=== PATIENT | male | born 1960 | race Caucasian/White ===

== ENCOUNTER 2017-04-21 17:35 | Emergency (ER) | payer OTHER ==
[~2017-04-21] VITALS: Ht 167.6 cm; Wt 73.9 kg
[2017-04-21] MEDS ORDERED: ASPI81CH PO (17:56)
[2017-04-21] MEDS ORDERED: DICL75ER PO (17:56)
[2017-04-21] MEDS ORDERED: DISU250 PO (17:57)
[2017-04-21] MEDS ORDERED: FLUPHENAZINE IM (17:58)
[2017-04-21] MEDS ORDERED: GABA300 PO (17:59)
[2017-04-21] MEDS ORDERED: LISI5 PO (17:59)
[2017-04-21] MEDS ORDERED: QUET100 PO (18:00)
[2017-04-21] MEDS ORDERED: Omeprazole20 M1 PO (18:00)
[2017-04-21] MEDS ORDERED: NAPR500 PO (18:00)
[2017-04-21] MEDS ORDERED: Requip0.5 MG PO (18:01)
[2017-04-21] MEDS ORDERED: Viagra100 MG PO (18:01)
[2017-04-21 18:09] LABS: BASOPHILS ABSOLUTE AUTO 0.05 K/mm3 (0.00-0.23); BASOPHILS PERCENT AUTO 1 % (0-2); EOSINOPHILS ABSOLUTE AUTO 0.31 K/mm3 (0.00-0.68); EOSINOPHILS PERCENT AUTO 5 % (0-6); Hematocrit 44.2 % (37.0-53.0); Hemoglobin 14.8 g/dL (13.5-17.5); IMMATURE GRAN ABSOLUTE AUTO 0.02 K/mm3 (0.00-0.10); IMMATURE GRAN PERCENT AUTO 0 % (0-1); LYMPHOCYTES ABSOLUTE AUTO 2.85 K/mm3 (0.84-5.20); LYMPHOCYTES PERCENT AUTO 43 % (21-46); MONOCYTES PERCENT AUTO 11 % (4-13); Mean Corpuscular HGB 30.2 pg (26.0-34.0); Mean Corpuscular HGB Conc 33.5 g/dL (31.5-36.5); Mean Corpuscular Volume 90 fL (80-100); NEUTROPHILS ABSOLUTE AUTO 2.63 K/mm3 (1.96-9.15); NEUTROPHILS PERCENT AUTO 40 % (41-73); Platelet Count 193 K/mm3 (150-400); RDW Coefficient Variation 13.7 % (11.7-14.2); White Blood Cell Count 6.56 K/mm3 (4.00-11.30)
[2017-04-21 18:21] LABS: Alanine Aminotransfer (ALT/SGP 92 U/L (12-78); Albumin, Blood 3.2 g/dL (3.4-5.0); Alk Phos 64 U/L (50-136); Anion Gap 9 mmol/L (6-16); Aspartate Aminotrans (AST/SGOT 50 U/L (12-37); Bilirubin, Total 0.7 mg/dL (0.1-1.0); Blood Urea Nitrogen 20 mg/dL (8-24); Bun/Creatinine Ratio 22.7 (12.0-20.0); CO2, Blood 23 mmol/L (21-32); Calcium, Blood 8.6 mg/dL (8.5-10.1); Chloride, Blood 107 mmol/L (98-108); Creatinine, Blood 0.88 mg/dL (0.60-1.20); Globulin, Blood 3.3 g/dL (2.2-4.0); Glomerular Filtration Rate >60 (60-); Glucose, Blood 98 mg/dL (70-99); Potassium, Blood 3.8 mmol/L (3.5-5.5); Sodium, Blood 139 mmol/L (136-145); Total Protein, Blood 6.5 g/dL (6.4-8.2); Troponin I <0.015 ng/mL (0.000-0.040)
[2017-11-18] MEDS ORDERED: Cipro500 MG PO (16:17)
[2017-11-18] MEDS ORDERED: BISM87SU PO (16:17)
[2017-11-18] MEDS ORDERED: PROBIOTIC1 EAC1 PO (16:17)
== END 2017-04-21 19:55 | disposition home or self-care (01) ==
LOC: ER 17:35
PROVIDERS: Physician Assistant
DX: I95.9 Hypotension, unspecified (principal); F17.210 Nicotine dependence, cigarettes, uncomplicated; I10 Essential (primary) hypertension; F31.9 Bipolar disorder, unspecified; K21.9 Gastro-esophageal reflux disease without esophagitis; Z79.82 Long term (current) use of aspirin; Z79.899 Other long term (current) drug therapy
CPT/HCPCS: 71046; 80053; 83880; 84484; 85025; 93005; 93010; 99283

== ENCOUNTER 2019-12-18 19:12 | Observation (INO) | payer OTHER ==
[~2019-12-18] VITALS: Ht 167.6 cm; Wt 104.3 kg
[~2019-12-18 19:12] MED LIST: ASPI81CH PO; B-1100 M2 PO; BENZ1 PO; BISM87SU PO; CYCL10 PO; Cipro500 MG PO; DICL75ER PO; DISU250 PO; FISH OIL 1,2001 EAC7 PO; FLUPHENAZINE IM; GABA300 PO; HYDCHL25 PO; HYDPAM50 PO; LISI5 PO; NAPR500 PO; OMEPRAZOLE MAGN20 MG PO; Omeprazole20 M1 PO; PROBIOTIC1 EAC1 PO; QUET100 PO; Requip0.5 MG PO; SULINDAC200 MG PO; TRAZ50 PO; Viagra100 MG PO; Vitamin B-121000 MCG PO
[2019-12-18 20:30] LABS: BASOPHILS ABSOLUTE AUTO 0.06 K/mm3 (0.00-0.23); BASOPHILS PERCENT AUTO 1 % (0-2); EOSINOPHILS ABSOLUTE AUTO 0.14 K/mm3 (0.00-0.68); EOSINOPHILS PERCENT AUTO 1 % (0-6); Hematocrit 49.6 % (37.0-53.0); Hemoglobin 16.3 g/dL (13.5-17.5); IMMATURE GRAN ABSOLUTE AUTO 0.06 K/mm3 (0.00-0.10); IMMATURE GRAN PERCENT AUTO 1 % (0-1); LYMPHOCYTES ABSOLUTE AUTO 4.27 K/mm3 (0.84-5.20); LYMPHOCYTES PERCENT AUTO 38 % (21-46); MONOCYTES ABSOLUTE AUTO 0.75 K/mm3 (0.16-1.47); MONOCYTES PERCENT AUTO 7 % (4-13); Mean Corpuscular HGB 30.7 pg (26.0-34.0); Mean Corpuscular HGB Conc 32.9 g/dL (31.5-36.5); Mean Corpuscular Volume 93 fL (80-100); Mean Platelet Volume 9.7 fL (9.1-12.4); NEUTROPHILS ABSOLUTE AUTO 6.11 K/mm3 (1.96-9.15); NEUTROPHILS PERCENT AUTO 54 % (41-73); Platelet Count 296 K/mm3 (150-400); RDW Coefficient Variation 14.5 % (11.7-14.2); RDW Standard Deviation 49.4 fL (35.1-46.3); Red Blood Cell Count 5.31 M/mm3 (4.30-5.90); White Blood Cell Count 11.39 K/mm3 (4.00-11.30)
[2019-12-18 20:48] LABS: Alanine Aminotransfer (ALT/SGP 22 U/L (12-78); Albumin, Blood 4.4 g/dL (3.4-5.0); Albumin/Globulin Ratio 1.2 (0.8-1.8); Alk Phos 61 U/L (50-136); Anion Gap 8 mmol/L (6-16); Aspartate Aminotrans (AST/SGOT 20 U/L (12-37); Bilirubin, Total 0.9 mg/dL (0.1-1.0); Blood Urea Nitrogen 8 mg/dL (8-24); Bun/Creatinine Ratio 9.3 (12.0-20.0); CO2, Blood 25 mmol/L (21-32); Calcium, Blood 9.5 mg/dL (8.5-10.1); Chloride, Blood 112 mmol/L (98-108); Creatinine, Blood 0.86 mg/dL (0.60-1.20); Ethanol (Alcohol), Blood, Med 290 mg/dL; Globulin, Blood 3.6 g/dL (2.2-4.0); Glomerular Filtration Rate >60 (60-); Glucose, Blood 111 mg/dL (70-99); Magnesium, Blood 2.4 mg/dL (1.6-2.4); Sodium, Blood 145 mmol/L (136-145)
== END 2019-12-19 10:21 | disposition home or self-care (01) ==
LOC: ER 19:12 → EOR 19:13
PROVIDERS: ADMIT Emergency Medicine
DX: F10.129 Alcohol abuse with intoxication, unspecified (principal); Y90.8 Blood alcohol level of 240 mg/100 ml or more; S00.31XA Abrasion of nose, initial encounter; X58.XXXA Exposure to other specified factors, initial encounter; I10 Essential (primary) hypertension; K21.9 Gastro-esophageal reflux disease without esophagitis; F17.210 Nicotine dependence, cigarettes, uncomplicated; Z79.899 Other long term (current) drug therapy
CPT/HCPCS: 36415; 80053; 83735; 85025; 96372; 99285; G0378; G0480; J1200; J1630; J2060

== ENCOUNTER 2020-01-12 14:12 | Emergency (ER) | payer OTHER ==
[~2020-01-12] VITALS: Ht 182.9 cm; Wt 98.4 kg
[2020-01-12] MEDS ORDERED: IBUP600 PO (21:07)
== END 2020-01-12 18:54 | disposition left against medical advice (07) ==
LOC: ER 14:12
DX: M25.532 Pain in left wrist (principal); M25.512 Pain in left shoulder; Z53.21 Procedure and treatment not carried out due to patient leaving prior to being seen by health care provider; M25.531 Pain in right wrist
CPT/HCPCS: 72100; 73030; 73110; 99283-25

== ENCOUNTER 2020-01-12 18:32 | Emergency (ER) | payer OTHER ==
[~2020-01-12] VITALS: Ht 182.9 cm; Wt 98.4 kg
[2020-01-12] MEDS ORDERED: IBUP600 PO (21:07)
== END 2020-01-12 21:25 | disposition home or self-care (01) ==
LOC: ER 18:32
DX: S63.004A Unspecified dislocation of right wrist and hand, initial encounter (principal); S43.402A Unspecified sprain of left shoulder joint, initial encounter; S39.012A Strain of muscle, fascia and tendon of lower back, initial encounter; S63.501A Unspecified sprain of right wrist, initial encounter; Z79.899 Other long term (current) drug therapy
CPT/HCPCS: 99282

== ENCOUNTER 2020-02-29 14:30 | Emergency (ER) | payer OTHER ==
[~2020-02-29] VITALS: Ht 167.6 cm; Wt 90.7 kg
[~2020-02-29 14:30] MED LIST changes: +IBUP600 PO
[2020-02-29 15:24] LABS: BASOPHILS ABSOLUTE AUTO 0.06 K/mm3 (0.00-0.23); BASOPHILS PERCENT AUTO 1 % (0-2); EOSINOPHILS ABSOLUTE AUTO 0.36 K/mm3 (0.00-0.68); EOSINOPHILS PERCENT AUTO 3 % (0-6); Hematocrit 49.6 % (37.0-53.0); Hemoglobin 16.9 g/dL (13.5-17.5); IMMATURE GRAN ABSOLUTE AUTO 0.03 K/mm3 (0.00-0.10); IMMATURE GRAN PERCENT AUTO 0 % (0-1); LYMPHOCYTES PERCENT AUTO 28 % (21-46); MONOCYTES ABSOLUTE AUTO 0.91 K/mm3 (0.16-1.47); MONOCYTES PERCENT AUTO 8 % (4-13); Mean Corpuscular HGB 31.4 pg (26.0-34.0); Mean Corpuscular HGB Conc 34.1 g/dL (31.5-36.5); Mean Corpuscular Volume 92 fL (80-100); Mean Platelet Volume 9.8 fL (9.1-12.4); NEUTROPHILS ABSOLUTE AUTO 7.21 K/mm3 (1.96-9.15); NEUTROPHILS PERCENT AUTO 61 % (41-73); Platelet Count 330 K/mm3 (150-400); RDW Coefficient Variation 13.4 % (11.7-14.2); RDW Standard Deviation 45.2 fL (35.1-46.3); Red Blood Cell Count 5.39 M/mm3 (4.30-5.90); White Blood Cell Count 11.87 K/mm3 (4.00-11.30)
[2020-02-29 15:43] LABS: Alanine Aminotransfer (ALT/SGP 27 U/L (12-78); Albumin, Blood 4.1 g/dL (3.4-5.0); Albumin/Globulin Ratio 1.1 (0.8-1.8); Alk Phos 79 U/L (50-136); Anion Gap 7 mmol/L (6-16); Aspartate Aminotrans (AST/SGOT 18 U/L (12-37); Bilirubin, Total 0.7 mg/dL (0.1-1.0); Blood Urea Nitrogen 11 mg/dL (8-24); Bun/Creatinine Ratio 15.5 (12.0-20.0); CO2, Blood 26 mmol/L (21-32); Calcium, Blood 10.1 mg/dL (8.5-10.1); Chloride, Blood 103 mmol/L (98-108); Creatinine, Blood 0.71 mg/dL (0.60-1.20); Globulin, Blood 3.8 g/dL (2.2-4.0); Glomerular Filtration Rate >60 (60-); Glucose, Blood 95 mg/dL (70-99); Potassium, Blood 3.9 mmol/L (3.5-5.5); Sodium, Blood 136 mmol/L (136-145); Total Protein, Blood 7.9 g/dL (6.4-8.2); Troponin I <0.015 ng/mL (0.000-0.040)
== END 2020-02-29 16:52 | disposition home or self-care (01) ==
LOC: ER 14:30
PROVIDERS: Physician Assistant
DX: K29.70 Gastritis, unspecified, without bleeding (principal); I10 Essential (primary) hypertension; F17.290 Nicotine dependence, other tobacco product, uncomplicated; Z79.899 Other long term (current) drug therapy
CPT/HCPCS: 36415; 71046; 80053; 83690; 84484; 85025; 93005; 93010; 99284-25

== ENCOUNTER 2020-05-23 18:26 | Emergency (ER) | payer OTHER ==
[~2020-05-23] VITALS: Ht 167.6 cm; Wt 90.7 kg
[~2020-05-23 18:26] MED LIST changes: -B-1100 M2 PO; -CYCL10 PO; -HYDPAM50 PO; -QUET100 PO; -SULINDAC200 MG PO; -TRAZ50 PO; -Vitamin B-121000 MCG PO
[2020-05-23] MEDS ORDERED: METPRE4DP PO (19:32)
== END 2020-05-23 19:43 | disposition home or self-care (01) ==
LOC: ER 18:26
DX: M54.17 Radiculopathy, lumbosacral region (principal); I10 Essential (primary) hypertension; K21.9 Gastro-esophageal reflux disease without esophagitis; F17.290 Nicotine dependence, other tobacco product, uncomplicated; Z79.899 Other long term (current) drug therapy
CPT/HCPCS: 96372; 99283-25; J1100

== ENCOUNTER 2020-05-28 16:15 | Emergency (ER) | payer OTHER ==
[~2020-05-28] VITALS: Ht 167.6 cm; Wt 93.0 kg
[~2020-05-28 16:15] MED LIST changes: +METPRE4DP PO
[2020-05-28] MEDS ORDERED: CEPH500 PO (18:25)
== END 2020-05-28 18:35 | disposition home or self-care (01) ==
LOC: ER 16:15
DX: L03.113 Cellulitis of right upper limb (principal); I10 Essential (primary) hypertension; K21.9 Gastro-esophageal reflux disease without esophagitis; F17.290 Nicotine dependence, other tobacco product, uncomplicated; Z79.899 Other long term (current) drug therapy
CPT/HCPCS: 99282; A9270

== ENCOUNTER 2020-05-30 10:24 | Inpatient (IN) | payer OTHER ==
[~2020-05-30] VITALS: Ht 167.6 cm; Wt 94.5 kg
[~2020-05-30 10:24] MED LIST changes: +CEPH500 PO
[2020-05-30] MEDS ORDERED: CEPHALEXIN500 M1 PO (11:05)
[2020-05-30 11:10] LABS: BASOPHILS ABSOLUTE AUTO 0.04 K/mm3 (0.00-0.23); BASOPHILS PERCENT AUTO 0 % (0-2); EOSINOPHILS ABSOLUTE AUTO 0.16 K/mm3 (0.00-0.68); EOSINOPHILS PERCENT AUTO 1 % (0-6); Hemoglobin 15.2 g/dL (13.5-17.5); IMMATURE GRAN ABSOLUTE AUTO 0.11 K/mm3 (0.00-0.10); IMMATURE GRAN PERCENT AUTO 1 % (0-1); LYMPHOCYTES PERCENT AUTO 3 % (21-46); MONOCYTES ABSOLUTE AUTO 0.54 K/mm3 (0.16-1.47); MONOCYTES PERCENT AUTO 3 % (4-13); Mean Corpuscular HGB 30.8 pg (26.0-34.0); Mean Corpuscular HGB Conc 33.8 g/dL (31.5-36.5); Mean Corpuscular Volume 91 fL (80-100); Mean Platelet Volume 10.4 fL (9.1-12.4); NEUTROPHILS ABSOLUTE AUTO 15.83 K/mm3 (1.96-9.15); NEUTROPHILS PERCENT AUTO 92 % (41-73); Platelet Count 229 K/mm3 (150-400); RDW Coefficient Variation 13.8 % (11.7-14.2); RDW Standard Deviation 46.6 fL (35.1-46.3); Red Blood Cell Count 4.94 M/mm3 (4.30-5.90); White Blood Cell Count 17.18 K/mm3 (4.00-11.30)
[2020-05-30 11:21] LABS: Alanine Aminotransfer (ALT/SGP 28 U/L (12-78); Albumin, Blood 2.8 g/dL (3.4-5.0); Albumin/Globulin Ratio 0.7 (0.8-1.8); Alk Phos 66 U/L (50-136); Anion Gap 1 mmol/L (6-16); Aspartate Aminotrans (AST/SGOT 14 U/L (12-37); Bilirubin, Total 0.8 mg/dL (0.1-1.0); Blood Urea Nitrogen 19 mg/dL (8-24); CO2, Blood 30 mmol/L (21-32); Calcium, Blood 8.9 mg/dL (8.5-10.1); Chloride, Blood 108 mmol/L (98-108); Creatinine, Blood 0.71 mg/dL (0.60-1.20); Glomerular Filtration Rate >60 (60-); Glucose, Blood 150 mg/dL (70-99); Potassium, Blood 4.1 mmol/L (3.5-5.5); Sodium, Blood 139 mmol/L (136-145); Total Protein, Blood 6.8 g/dL (6.4-8.2)
[2020-05-30] MEDS ORDERED: ACET325 PO (13:56)
[2020-05-30] MEDS ORDERED: DEPAKOTE ER500 M2 PO (13:58)
[2020-05-30] MEDS ORDERED: ZADITOR5 M1 BOTHEYES (13:59)
[2020-05-30] MEDS ORDERED: MAGNESIUM OXID500 MG PO (13:59)
[2020-05-30] MEDS ORDERED: HYDROCHLOROTH12.5 MG PO (13:59)
[2020-05-30] MEDS ORDERED: MELA3 PO (14:00)
[2020-05-30] MEDS ORDERED: NIAC500ER PO (14:01)
[2020-05-30] MEDS ORDERED: TAMS.4ER PO (14:01)
[2020-05-30] MEDS ORDERED: QUET100 PO (14:02)
[2020-05-30] MEDS ORDERED: Hydroxyzine HCl50 MG PO (14:03)
[2020-05-30] MEDS ORDERED: CYCL10 PO (14:03)
[2020-05-30] MEDS ORDERED: SULINDAC200 MG PO (14:04)
[2020-05-30] MEDS ORDERED: B-1100 M2 PO (14:04)
[2020-05-30] MEDS ORDERED: TRAZ50 PO (14:04)
[2020-05-30] MEDS ORDERED: FISH OIL 1,2001 EAC7 PO (14:05)
[2020-05-30] MEDS ORDERED: Vitamin B-121000 MCG PO (14:05)
[2020-05-30] MEDS ORDERED: PRAZ2 PO (14:06)
[2020-05-30] MEDS ORDERED: OMEP20ER PO (14:06)
[2020-05-30] MEDS ORDERED: LIDO700A20 TD (14:07)
[2020-05-30] MEDS ORDERED: NARCAN4 M1 (14:07)
[2020-05-30] MEDS ORDERED: THERA GESIC TOP (14:09)
[2020-05-30 18:30] LABS: U Amphetamine Screen Not Detected; U Barbituate Screen Not Detected; U Benzodiazapine Screen DETECTED; U Buprenorphine Screen Not Detected; U Cannabinoids Screen Not Detected; U Cocaine Screen Not Detected; U Methadone Screen Not Detected; U Methamphetamine Screen Not Detected; U Opiates Screen Not Detected; U Oxycodone Screen Not Detected; U Phencyclidine Screen Not Detected; U Propoxyphene Screen Not Detected
--- NOTE | 2020-05-30 18:36 | NUR ---
Shift Summary Assumed care at 1503. Received report from [facility] ED-RN. Patient arrived to unit via gurney. A/Ox4, independent in room. Patient reports using marijuana, methamphetamine, and alcohol occassionally. States last alcohol consumption was , 05/27/20 and reports only drinking "a couple of beers". States he is homeless right now living in a tent with friends. CIWA: 2. UA and MRSA swab (Nares) collected and sent in. DNR band verified with Chucky, applied to L wrist. Hx of MRSA, admitted with cellulitis to R arm. Patient in contact isolation. C/O 10/10 R arm pain and new N/T to affected arm since 3 days ago. On RA, unlabored breathing. Calls appropriately for needs. Appetite is good. WCTM and report to oncoming RN.
[2020-05-31 04:51] LABS: BASOPHILS ABSOLUTE AUTO 0.02 K/mm3 (0.00-0.23); BASOPHILS PERCENT AUTO 0 % (0-2); EOSINOPHILS ABSOLUTE AUTO 0.18 K/mm3 (0.00-0.68); EOSINOPHILS PERCENT AUTO 1 % (0-6); Hematocrit 39.6 % (37.0-53.0); Hemoglobin 13.3 g/dL (13.5-17.5); IMMATURE GRAN ABSOLUTE AUTO 0.16 K/mm3 (0.00-0.10); IMMATURE GRAN PERCENT AUTO 1 % (0-1); LYMPHOCYTES ABSOLUTE AUTO 1.42 K/mm3 (0.84-5.20); LYMPHOCYTES PERCENT AUTO 10 % (21-46); MONOCYTES PERCENT AUTO 7 % (4-13); Mean Corpuscular HGB Conc 33.6 g/dL (31.5-36.5); Mean Corpuscular Volume 92 fL (80-100); Mean Platelet Volume 10.1 fL (9.1-12.4); NEUTROPHILS ABSOLUTE AUTO 12.02 K/mm3 (1.96-9.15); NEUTROPHILS PERCENT AUTO 81 % (41-73); Platelet Count 224 K/mm3 (150-400); RDW Standard Deviation 47.6 fL (35.1-46.3); Red Blood Cell Count 4.29 M/mm3 (4.30-5.90)
--- NOTE | 2020-05-31 08:09 | NUR ---
SHIFT SUMMARY: PATIENT IA A&IX4, VSS, CIWA SCORES ARE 2 (HEAD ACHE), 0, AND 0. REPORTED PAIN IN R HAND AND ARM AND WAS GIVEN TYLENOL AND FLEXERIL WITH GOOD EFFECT. R HAND/ARM IS RED AND WARM, BORDERS ARE MARKED.
--- NOTE | 2020-05-31 16:51 | NUR ---
SHIFT SUMMARY ORTHO CONSULTED TODAY & IN TO SEE PT TODAY. PT TO BE NPO AT MIDNIGHT FOR POSSIBLE SURGERY. TRAMADOL ADDED TO PAIN REGIMEN. LITTLE PAIN RELIEF REPORTED BY PT. ICE PACKS PROVIDED TO AIDE IN SWELLING. PT DENIES OTHER PROBLEMS BESIDES HIS ARM PAIN. REDNESS HAS NOT WORSENED THIS SHIFT. NO OTHER ACUTE CHANGES IN ASSESSMENT AT THIS TIME. VS REVIEWED. PT IND IN ROOM WHEN NOT CONNECTED TO IV PUMP. CALL LIGHT IN REACH, WATCHING MOVIES T/O THE DAY. DENIES OTHER NEEDS AT THIS TIME.
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
--- NOTE | 2020-06-01 06:13 | NUR ---
DR [facility] SAYS NO SURGERY CONTINUE TO ELEVATE RT UE. rESUME DIET & CONTINUE WITH ABX THERAPY.
--- NOTE | 2020-06-01 18:13 | NUR ---
SHIFT SUMMARY PT UP IN ROOM INDEPENDENTLY THROUGH THE DAY. SHOWER TAKEN. ENCOURAGED TO KEEP R ARM AND HAND ELEVATED ABOVE HEART SEVERAL TIMES TODAY WITH PILLOWS PROVIDED. DID SAY ONCE HE WAS PUTTING IT OVER HIS HEAD IN BED. THIS NURSE HAS NOT SEEN PT KEEP HAND ELEVATED AT ANY TIME WHEN CHECKING ON PT. RECEIVED NEW ORDER TO TORADOL DUE TO PT REPORTING TRAMADOL DIDN'T WORK. ALSO REPORTED TORADOL DIDN'T WORK EITHER. R HAND VERY WARM TO TOUCH. SWOLLEN AND RED. PULSE FAINT. REDNESS GOES UP TO LOWER FOREARM BUT OTHER MARKED AREAS ON ARM NO LONGER RED. SMALL SCAB ON BACK OF HAND DRAINING A SMALL AMOUNT OF CLEAR DISCHARGE.
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
--- NOTE | 2020-06-02 18:29 | NUR ---
SHIFT SUMMARY INDEPENDENT IN ROOM. PLANS FOR DISCHARGE TOMORROW TO DAYS INN AT 1500 ACCORDING TO PT. R HAND LESS RED AND LESS SWOLLEN THIS EVENING COMPARED TO THIS MORNING. HAVE CONTINUED TO ENCOURAGE PT TO KEEP R HAND ELEVATED AND HAVE NOTICED HE HAS ELEVATED IT A BIT MORE TODAY. REPORTS PAIN IS IMPROVING WELL.
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
[2020-06-03] MEDS ORDERED: SULTRIDS PO (13:05)
--- NOTE | 2020-06-03 14:00 | NUR ---
DISCHARGE SUMMARY- DISCHARGE INSTRUCTIONS REVIEWED WITH PT. RX FAXED TO [facility]. [facility]. PT DC'D VIA [facility] AT 1400 ESCORTED OUT VIA WHEELCHAIR.
== END 2020-06-03 14:03 | disposition home or self-care (01) | DRG 603 ==
LOC: ER 10:24 → MEDS 13:49 → ER 14:08 → ICUW 14:08 → MEDS 15:16
PROVIDERS: Emergency Medicine; ADMIT Hospitalist
DX: L03.113 Cellulitis of right upper limb (principal); F31.9 Bipolar disorder, unspecified; Z66 Do not resuscitate; I10 Essential (primary) hypertension; F19.10 Other psychoactive substance abuse, uncomplicated; N40.0 Benign prostatic hyperplasia without lower urinary tract symptoms; K21.9 Gastro-esophageal reflux disease without esophagitis; Z59.0 Homelessness; Z86.14 Personal history of Methicillin resistant Staphylococcus aureus infection
CPT/HCPCS: 36415; 73201; 80053; 82550; 83605; 85025; 87040; 96365-59; 96366; 96367; 99284-25; A9270; J0690; J0696; J1650; J1885; J2405; J2543; J3370; J7030; J7050; Q9967

== ENCOUNTER 2020-10-12 04:40 | Emergency (ER) | payer OTHER ==
[~2020-10-12] VITALS: Ht 167.6 cm; Wt 88.9 kg
[~2020-10-12 04:40] MED LIST changes: +ACET325 PO; +B-1100 M2 PO; +CEPHALEXIN500 M1 PO; +CYCL10 PO; +DEPAKOTE ER500 M2 PO; +HYDROCHLOROTH12.5 MG PO; +Hydroxyzine HCl50 MG PO; +LIDO700A20 TD; +MAGNESIUM OXID500 MG PO; +MELA3 PO; +NARCAN4 M1; +NIAC500ER PO; +OMEP20ER PO; +PRAZ2 PO; +QUET100 PO; +SULINDAC200 MG PO; +SULTRIDS PO; +TAMS.4ER PO; +THERA GESIC TOP; +TRAZ50 PO; +Vitamin B-121000 MCG PO; +ZADITOR5 M1 BOTHEYES
[2020-10-12] MEDS ORDERED: LISI5 PO (04:52)
== END 2020-10-12 07:08 | disposition left against medical advice (07) ==
LOC: ER 04:40
DX: R10.13 Epigastric pain (principal); I10 Essential (primary) hypertension; F17.210 Nicotine dependence, cigarettes, uncomplicated; K21.9 Gastro-esophageal reflux disease without esophagitis; Z79.899 Other long term (current) drug therapy
CPT/HCPCS: 93005; 93010; 99283-25; A9270

== ENCOUNTER 2020-10-17 08:35 | Inpatient (IN) | payer OTHER ==
[~2020-10-17] VITALS: Ht 167.6 cm; Wt 88.0 kg
[2020-10-17 09:49] LABS: BASOPHILS ABSOLUTE AUTO 0.04 K/mm3 (0.00-0.23); BASOPHILS PERCENT AUTO 0 % (0-2); EOSINOPHILS ABSOLUTE AUTO 0.02 K/mm3 (0.00-0.68); EOSINOPHILS PERCENT AUTO 0 % (0-6); Hematocrit 48.3 % (37.0-53.0); Hemoglobin 16.1 g/dL (13.5-17.5); IMMATURE GRAN ABSOLUTE AUTO 0.14 K/mm3 (0.00-0.10); IMMATURE GRAN PERCENT AUTO 1 % (0-1); LYMPHOCYTES ABSOLUTE AUTO 1.69 K/mm3 (0.84-5.20); LYMPHOCYTES PERCENT AUTO 8 % (21-46); MONOCYTES ABSOLUTE AUTO 1.97 K/mm3 (0.16-1.47); MONOCYTES PERCENT AUTO 10 % (4-13); Mean Corpuscular HGB 31.3 pg (26.0-34.0); Mean Corpuscular HGB Conc 33.3 g/dL (31.5-36.5); Mean Corpuscular Volume 94 fL (80-100); NEUTROPHILS ABSOLUTE AUTO 16.18 K/mm3 (1.96-9.15); NEUTROPHILS PERCENT AUTO 81 % (41-73); RDW Standard Deviation 44.7 fL (35.1-46.3); Red Blood Cell Count 5.15 M/mm3 (4.30-5.90); White Blood Cell Count 20.04 K/mm3 (4.00-11.30)
[2020-10-17 09:58] LABS: Mean Platelet Volume 10.9 fL (9.1-12.4)
[2020-10-17 10:06] LABS: Alanine Aminotransfer (ALT/SGP 21 U/L (12-78); Albumin, Blood 3.7 g/dL (3.4-5.0); Albumin/Globulin Ratio 1.1 (0.8-1.8); Alk Phos 62 U/L (50-136); Anion Gap 6 mmol/L (6-16); Aspartate Aminotrans (AST/SGOT 22 U/L (12-37); Bilirubin, Total 1.6 mg/dL (0.1-1.0); Blood Urea Nitrogen 11 mg/dL (8-24); Bun/Creatinine Ratio 12.6 (12.0-20.0); CO2, Blood 23 mmol/L (21-32); Calcium, Blood 8.6 mg/dL (8.5-10.1); Chloride, Blood 107 mmol/L (98-108); Creatinine, Blood 0.87 mg/dL (0.60-1.20); Globulin, Blood 3.5 g/dL (2.2-4.0); Glomerular Filtration Rate >60 (60-); Glucose, Blood 105 mg/dL (70-99); Potassium, Blood 4.2 mmol/L (3.5-5.5); Sodium, Blood 136 mmol/L (136-145); Total Protein, Blood 7.2 g/dL (6.4-8.2)
[2020-10-17 10:44] LABS: Platelet Count 209 K/mm3 (150-400)
--- NOTE | 2020-10-17 14:30 | NUR ---
PT ARRIVED TO UNIT AT 1400. ABLE TO TRANSFER SELF TO BED, NO WEAKNESS WITH TRANSFER. PT REPORTS PAIN AT 8/10 AND REQUESTS TYLENOL TO MANAGE PAIN, REPORTS BEING 160 DAYS SOBER AND DOESNT WANT TO TAKE ANYTHING THAT CAN IMPACT THAT. TOLERATING PO WELL CURRENTLY EATING SANDWICH AND DRINKING WATER. LARGE REDDENED AREA TO RIGHT AXILLA, PT REPORTS FEELING A "KNOT" IN THE AREA YESTERDAY THAT HE WAS MASSAGING, HE FELT IT POP AND NOW HAS THE LARGE REDDENED AREA. OUTLINE OF REDDENED AREA PRESENT FROM ER. RE OUTLINED ON ARRIVAL WITH THINNER MARKER, REDDNESS APPEARS DECREASED FROM INITIAL MARKING. FIRM TO TOUCH ON SUPERIOR SECTION OF REDNESS. PT REPORTS IT FEELS HOT TO HIM.
[2020-10-17 15:37] LABS: SARS-Cov-2 (COVID-19) PCR, MMC NEGATIVE (NEGATIVE)
--- NOTE | 2020-10-17 17:33 | NUR ---
NO ACUTE CHANGES SINCE ARRIVAL TO UNIT. PT RESTING IN BED WATCHING TV. TOLERATING PO WELL. PAIN MANAGED WITH TYLENOL AND ICE PACK PER PT REQUEST. COOL RAG PROVIDED.
--- NOTE | 2020-10-17 18:38 | NUR ---
IV ABX INFUSING PER EMAR. NICOTINE PATCH STARTED.
[2020-10-18 08:31] LABS: BASOPHILS ABSOLUTE AUTO 0.05 K/mm3 (0.00-0.23); BASOPHILS PERCENT AUTO 0 % (0-2); EOSINOPHILS ABSOLUTE AUTO 0.12 K/mm3 (0.00-0.68); EOSINOPHILS PERCENT AUTO 1 % (0-6); Hematocrit 44.1 % (37.0-53.0); Hemoglobin 14.9 g/dL (13.5-17.5); IMMATURE GRAN ABSOLUTE AUTO 0.13 K/mm3 (0.00-0.10); IMMATURE GRAN PERCENT AUTO 1 % (0-1); LYMPHOCYTES ABSOLUTE AUTO 1.69 K/mm3 (0.84-5.20); LYMPHOCYTES PERCENT AUTO 7 % (21-46); MONOCYTES ABSOLUTE AUTO 2.09 K/mm3 (0.16-1.47); MONOCYTES PERCENT AUTO 9 % (4-13); Mean Corpuscular HGB 31.4 pg (26.0-34.0); Mean Corpuscular HGB Conc 33.8 g/dL (31.5-36.5); Mean Corpuscular Volume 93 fL (80-100); Mean Platelet Volume 10.4 fL (9.1-12.4); NEUTROPHILS PERCENT AUTO 82 % (41-73); Platelet Count 188 K/mm3 (150-400); RDW Standard Deviation 44.7 fL (35.1-46.3); Red Blood Cell Count 4.75 M/mm3 (4.30-5.90); White Blood Cell Count 22.88 K/mm3 (4.00-11.30)
[2020-10-18 08:47] LABS: Anion Gap 5 mmol/L (6-16); Blood Urea Nitrogen 14 mg/dL (8-24); Bun/Creatinine Ratio 18.1 (12.0-20.0); CO2, Blood 24 mmol/L (21-32); Calcium, Blood 8.7 mg/dL (8.5-10.1); Chloride, Blood 107 mmol/L (98-108); Creatinine, Blood 0.77 mg/dL (0.60-1.20); Glomerular Filtration Rate >60 (60-); Glucose, Blood 124 mg/dL (70-99); Potassium, Blood 4.2 mmol/L (3.5-5.5); Sodium, Blood 136 mmol/L (136-145)
--- NOTE | 2020-10-18 11:57 | NUR ---
SALINE LOCKED PT TO TAKE SHOWER.
--- NOTE | 2020-10-18 12:40 | NUR ---
PT OUT OF ROOM.
--- NOTE | 2020-10-18 15:59 | NUR ---
REMOVED NICOTINE PATCH PT WANTED TO GO OUTSIDE TO SMOKE. REMOVED NICOTINE PATCH.
--- NOTE | 2020-10-18 17:24 | NUR ---
SUMMARY PT REC'D ABX PER ORDERS T/O DAY. REDNESS HAS PROGRESSED BELOW PREVIOUS OUTLINE, PLACED NEW OUTLINE W/DATE. MEDICATED PER ORDERS FOR AXILLARY PAIN AND SZYMANSKI T/O SHIFT. PT REMOVED NICOTINE PATCH(RN DISPOSED OF PATCH) AND WENT OUTSIDE TO SMOKE. SHOWERED THIS SHIFT. FEBRILE THIS AFTERNOON, PT REC'D TYLENOL AND TORADOL PER ORDERS FOR PAIN. PT INDEPENDENT IN ROOM. CALL LIGHT IN REACH.
--- NOTE | 2020-10-18 19:00 | NUR ---
GABAPENTIN PT REFUSED GABAPENTING STATING IT IS "JUNK" AND DIDN'T WANT IT. PT STATED FEELING ANXIOUS, REQUESTING ATARAX FROM PHARMACY. REPORT GIVEN TO ONCOMING SHIFT.
[2020-10-19 04:49] LABS: BASOPHILS ABSOLUTE AUTO 0.04 K/mm3 (0.00-0.23); BASOPHILS PERCENT AUTO 0 % (0-2); EOSINOPHILS ABSOLUTE AUTO 0.29 K/mm3 (0.00-0.68); EOSINOPHILS PERCENT AUTO 2 % (0-6); Hematocrit 39.2 % (37.0-53.0); Hemoglobin 13.3 g/dL (13.5-17.5); IMMATURE GRAN ABSOLUTE AUTO 0.05 K/mm3 (0.00-0.10); IMMATURE GRAN PERCENT AUTO 0 % (0-1); LYMPHOCYTES ABSOLUTE AUTO 1.46 K/mm3 (0.84-5.20); LYMPHOCYTES PERCENT AUTO 10 % (21-46); MONOCYTES ABSOLUTE AUTO 1.44 K/mm3 (0.16-1.47); MONOCYTES PERCENT AUTO 10 % (4-13); Mean Corpuscular HGB 31.3 pg (26.0-34.0); Mean Corpuscular HGB Conc 33.9 g/dL (31.5-36.5); Mean Corpuscular Volume 92 fL (80-100); Mean Platelet Volume 10.7 fL (9.1-12.4); NEUTROPHILS ABSOLUTE AUTO 11.68 K/mm3 (1.96-9.15); NEUTROPHILS PERCENT AUTO 78 % (41-73); Platelet Count 181 K/mm3 (150-400); RDW Coefficient Variation 13.2 % (11.7-14.2); RDW Standard Deviation 44.5 fL (35.1-46.3); Red Blood Cell Count 4.25 M/mm3 (4.30-5.90); White Blood Cell Count 14.96 K/mm3 (4.00-11.30)
[2020-10-19 05:06] LABS: Anion Gap 5 mmol/L (6-16); Blood Urea Nitrogen 11 mg/dL (8-24); Bun/Creatinine Ratio 13.2 (12.0-20.0); CO2, Blood 26 mmol/L (21-32); Calcium, Blood 8.1 mg/dL (8.5-10.1); Chloride, Blood 108 mmol/L (98-108); Creatinine, Blood 0.83 mg/dL (0.60-1.20); Glomerular Filtration Rate >60 (60-); Glucose, Blood 145 mg/dL (70-99); Potassium, Blood 3.7 mmol/L (3.5-5.5); Sodium, Blood 139 mmol/L (136-145)
--- NOTE | 2020-10-19 08:20 | NUR ---
SUMMARY PT SLEPT OFF AND ON LAST NIGHT.I SPOKE WITH DR AMADO REGARDING PTS FEVERS AND ADVISED PT STATED RECENTLY COMPLETED ISOLATION PERIOD FOR DIRECT EXPOSURE TO COVID.PT DENIES COUGH.ALSO DISCUSSED PT ELEVATION IN WBC ALTHOUGH ANTIBIOTICS WERE CHANGED YEATERDAY. NO NEW ORDERS RECEIVED.
[2020-10-19 08:58] LABS: SARS-Cov-2 (COVID-19) PCR, MMC NEGATIVE (NEGATIVE)
--- NOTE | 2020-10-19 12:36 | NUR ---
pt out of room
--- NOTE | 2020-10-19 13:12 | NUR ---
pt back to room
--- NOTE | 2020-10-19 17:19 | NUR ---
PT OUT OF ROOM.
--- NOTE | 2020-10-19 17:50 | NUR ---
pt out of room
--- NOTE | 2020-10-19 18:08 | NUR ---
SUMMARY PT BACK TO ROOM. MEDICATED PER ORDERS W/TYLENOL FOR 8/10 R AXILLARY PAIN. IV FLUIDS INFUSING PER ORDERS. PT EATING DINNER. NO ACUTE CHANGES T/O SHIFT. PT IRRITABLE AT TIMES. PT INDEPENDENT. CALL LIGHT IN REACH.
[2020-10-20 05:52] LABS: BASOPHILS ABSOLUTE AUTO 0.03 K/mm3 (0.00-0.23); BASOPHILS PERCENT AUTO 0 % (0-2); EOSINOPHILS ABSOLUTE AUTO 0.28 K/mm3 (0.00-0.68); EOSINOPHILS PERCENT AUTO 3 % (0-6); Hematocrit 42.1 % (37.0-53.0); IMMATURE GRAN ABSOLUTE AUTO 0.04 K/mm3 (0.00-0.10); IMMATURE GRAN PERCENT AUTO 0 % (0-1); LYMPHOCYTES ABSOLUTE AUTO 2.22 K/mm3 (0.84-5.20); LYMPHOCYTES PERCENT AUTO 21 % (21-46); MONOCYTES PERCENT AUTO 9 % (4-13); Mean Corpuscular HGB Conc 33.3 g/dL (31.5-36.5); Mean Corpuscular Volume 93 fL (80-100); Mean Platelet Volume 10.8 fL (9.1-12.4); NEUTROPHILS ABSOLUTE AUTO 7.15 K/mm3 (1.96-9.15); NEUTROPHILS PERCENT AUTO 67 % (41-73); Platelet Count 195 K/mm3 (150-400); RDW Standard Deviation 44.9 fL (35.1-46.3); Red Blood Cell Count 4.51 M/mm3 (4.30-5.90); White Blood Cell Count 10.72 K/mm3 (4.00-11.30)
[2020-10-20 06:12] LABS: Anion Gap 4 mmol/L (6-16); Blood Urea Nitrogen 8 mg/dL (8-24); Bun/Creatinine Ratio 10.1 (12.0-20.0); CO2, Blood 28 mmol/L (21-32); Calcium, Blood 8.3 mg/dL (8.5-10.1); Chloride, Blood 108 mmol/L (98-108); Creatinine, Blood 0.79 mg/dL (0.60-1.20); Glomerular Filtration Rate >60 (60-); Glucose, Blood 90 mg/dL (70-99); Potassium, Blood 3.8 mmol/L (3.5-5.5); Sodium, Blood 140 mmol/L (136-145)
--- NOTE | 2020-10-20 06:17 | NUR ---
SHIFT SUMMARY PT AOX4. INDEPENDENT IN ROOM. PT WOULD STEP OUTSIDE THE ROOM X3 T/O SHIFT TO HAVE A SMOKE BREAK. VSS. R AXILLA STILL RED, REDNESS HAS NOT IMPROVED BUT NOT WORSEN. PT STS THAT THE LUMP ON R AXILLA IS WORSE COMPARED YESTERDAY. PT REPORTS PAIN. PAIN MANAGED WITH TORADOL, TYLENOL AND GABAPENTIN. PT HAS BEEN PLEASANT, APPROPRIATE AND COOPERATIVE WITH CARE. IV STILL INFUSING. CALL LIGHT WITHIN REACH. PT IS VOIDING WELL WITHOUT ANY ISSUES. TOLERATING PO INTAKE. DENIES N/V. WILL PROVIDE REPORT TO ONCOMING NURSE.
--- NOTE | 2020-10-20 07:45 | NUR ---
meds given as sched digital media intern by to see pt req cold compress to be placed to r axillia inc red noted but less red r/t to marked margins pt reported it feels like it is more lumpy the digital media intern feels like it is less hard pain 10/12
--- NOTE | 2020-10-20 09:45 | NUR ---
dr durbin by to see pt
--- NOTE | 2020-10-20 11:59 | NUR ---
PT OUT TO SMOKE
[2020-10-20] MEDS ORDERED: Cleocin HCl150 MG PO (17:06)
== END 2020-10-20 18:27 | disposition home or self-care (01) | DRG 872 ==
LOC: ER 08:35 → ERHOLD 08:36 → SURS 08:36
PROVIDERS: Family Medicine; Physician Assistant; Student in an Organized Health Care Education/Training Program; ADMIT Hospitalist
DX: A41.9 Sepsis, unspecified organism (principal); L03.111 Cellulitis of right axilla; L03.313 Cellulitis of chest wall; K21.9 Gastro-esophageal reflux disease without esophagitis; F31.9 Bipolar disorder, unspecified; G89.29 Other chronic pain; N40.0 Benign prostatic hyperplasia without lower urinary tract symptoms; Z66 Do not resuscitate; Z20.822 Contact with and (suspected) exposure to COVID-19; F15.21 Other stimulant dependence, in remission; F12.90 Cannabis use, unspecified, uncomplicated; M54.9 Dorsalgia, unspecified; F10.21 Alcohol dependence, in remission; F17.210 Nicotine dependence, cigarettes, uncomplicated; G47.00 Insomnia, unspecified; I10 Essential (primary) hypertension; Z98.890 Other specified postprocedural states; Z86.14 Personal history of Methicillin resistant Staphylococcus aureus infection; Z86.19 Personal history of other infectious and parasitic diseases; Z79.899 Other long term (current) drug therapy
CPT/HCPCS: 36415; 71260; 74160; 76604; 76882; 80048; 80053; 83605; 85025; 87040; 96365; 96366; 96367; 96372; 96375; 96376; 99285-25; A9270; G0378; J0690; J0696; J1650; J1885; J2270; J2405; J3370; J7030; J7050; Q9967; U0004

== ENCOUNTER 2021-07-30 09:08 | Emergency (ER) | payer OTHER ==
[~2021-07-30] VITALS: Ht 167.6 cm; Wt 86.6 kg
[~2021-07-30 09:08] MED LIST changes: +Cleocin HCl150 MG PO
== END 2021-07-30 09:50 | disposition home or self-care (01) ==
LOC: ER 09:08
DX: M54.50 Low back pain, unspecified (principal); G89.29 Other chronic pain; I10 Essential (primary) hypertension; K21.9 Gastro-esophageal reflux disease without esophagitis; N40.0 Benign prostatic hyperplasia without lower urinary tract symptoms; F17.210 Nicotine dependence, cigarettes, uncomplicated; Z79.899 Other long term (current) drug therapy
CPT/HCPCS: 99282

== ENCOUNTER → 2021-11-21 | Outpatient (CLI) | payer OTHER ==
[2021-11-21 10:09] LABS: Source, Urine Voided
[2021-11-21 10:58] LABS: Bilirubin, Urine Neg (Neg); Blood, Urine Neg (Neg); Glucose Qualitative, Urine Neg (Neg); Ketones, Urine Neg (Neg); Leukocyte Esterase, Urine Neg (Neg); Nitrite, Urine Neg (Neg); Protein, Urine Neg (Neg); Urobilinogen, Urine NORM (Normal)
[2021-11-21 11:04] LABS: Appearance, Urine Clear (Clear); Color, Urine Yellow (P-Yellow)
== END ==
LOC: LAB SHORT 10:00
PROVIDERS: Radiology Therapeutic Radiology
DX: C61 Malignant neoplasm of prostate (principal)
CPT/HCPCS: 81003

== ENCOUNTER 2022-03-08 09:08 | Emergency (ER) | payer OTHER ==
[~2022-03-08] VITALS: Ht 167.6 cm; Wt 90.7 kg
[2022-03-08 11:19] LABS: Influenza A, PCR NEGATIVE (NEGATIVE); Influenza B, PCR NEGATIVE (NEGATIVE); Resp Syncytial Virus, PCR NEGATIVE (NEGATIVE); SARS-Cov-2 (COVID-19) PCR, MMC NEGATIVE (NEGATIVE)
== END 2022-03-08 12:22 | disposition home or self-care (01) ==
LOC: ER 09:08
PROVIDERS: Physician Assistant
DX: R51.9 Headache, unspecified (principal); Z20.822 Contact with and (suspected) exposure to COVID-19; K21.9 Gastro-esophageal reflux disease without esophagitis; I10 Essential (primary) hypertension; Z79.899 Other long term (current) drug therapy; F17.210 Nicotine dependence, cigarettes, uncomplicated
CPT/HCPCS: 0241U; 70450

== ENCOUNTER 2022-07-05 05:27 | Emergency (ER) | payer OTHER ==
[~2022-07-05] VITALS: Ht 175.3 cm; Wt 113.4 kg
[2022-07-05 05:35] VITALS: BP 158/107
[2022-07-05] MEDS ORDERED: OMEP20ER PO (07:27)
== END 2022-07-05 07:59 | disposition home or self-care (01) ==
LOC: ER 05:27
DX: R07.2 Precordial pain (principal); R11.2 Nausea with vomiting, unspecified; R10.13 Epigastric pain; K21.9 Gastro-esophageal reflux disease without esophagitis; Z79.899 Other long term (current) drug therapy; I10 Essential (primary) hypertension; F17.210 Nicotine dependence, cigarettes, uncomplicated
CPT/HCPCS: 71046; 93005; 93010; A9270

== ENCOUNTER 2023-01-06 05:31 | Emergency (ER) | payer OTHER ==
[~2023-01-06] VITALS: Ht 167.6 cm; Wt 89.4 kg
[2023-01-06 05:47] VITALS: BP 122/104
== END 2023-01-06 08:00 | disposition home or self-care (01) ==
LOC: ER 05:31
DX: S80.01XA Contusion of right knee, initial encounter (principal); F29 Unspecified psychosis not due to a substance or known physiological condition; I10 Essential (primary) hypertension; K21.9 Gastro-esophageal reflux disease without esophagitis; N40.0 Benign prostatic hyperplasia without lower urinary tract symptoms; F17.210 Nicotine dependence, cigarettes, uncomplicated; W19.XXXA Unspecified fall, initial encounter; Z79.899 Other long term (current) drug therapy
CPT/HCPCS: 99283

== ENCOUNTER 2024-05-03 16:33 | Emergency (ER) | payer OTHER ==
[~2024-05-03] VITALS: Ht 172.7 cm; Wt 90.7 kg
[2024-05-03 16:35] VITALS: BP 101/75
[2024-05-03] MEDS ORDERED: Ondansetron HCl 2 MG / ML 2ML Vial IV PRN (16:50)
[2024-05-03] MEDS ORDERED: Morphine Sulfate 4 MG/1 ML Injection IV ONE (16:50)
[2024-05-03 17:23] LABS: BASOPHILS ABSOLUTE AUTO 0.04 K/mm3 (0.00-0.23); BASOPHILS PERCENT AUTO 0 % (0-2); EOSINOPHILS ABSOLUTE AUTO 0.17 K/mm3 (0.00-0.68); EOSINOPHILS PERCENT AUTO 1 % (0-6); Hematocrit 44.4 % (37.0-53.0); Hemoglobin 15.2 g/dL (13.5-17.5); IMMATURE GRAN ABSOLUTE AUTO 0.05 K/mm3 (0.00-0.10); IMMATURE GRAN PERCENT AUTO 0 % (0-1); LYMPHOCYTES ABSOLUTE AUTO 1.13 K/mm3 (0.84-5.20); LYMPHOCYTES PERCENT AUTO 8 % (21-46); MONOCYTES ABSOLUTE AUTO 1.22 K/mm3 (0.16-1.47); MONOCYTES PERCENT AUTO 9 % (4-13); Mean Corpuscular HGB 33.1 pg (26.0-34.0); Mean Corpuscular HGB Conc 34.2 g/dL (31.5-36.5); Mean Corpuscular Volume 97 fL (80-100); Mean Platelet Volume 9.6 fL (9.1-12.4); NEUTROPHILS ABSOLUTE AUTO 11.03 K/mm3 (1.96-9.15); NEUTROPHILS PERCENT AUTO 81 % (41-73); Platelet Count 230 K/mm3 (150-400); RDW Coefficient Variation 13.2 % (11.7-14.2); RDW Standard Deviation 47.7 fL (35.1-46.3); Red Blood Cell Count 4.59 M/mm3 (4.30-5.90); White Blood Cell Count 13.64 K/mm3 (4.00-11.30)
[2024-05-03 17:36] LABS: International Normalized Ratio 0.98; Prothrombin Time Results 10.5 Sec (9.7-11.5)
[2024-05-03 17:45] LABS: Alanine Aminotransfer (ALT/SGP 25 U/L (12-78); Albumin, Blood 3.6 g/dL (3.4-5.0); Albumin/Globulin Ratio 1.1 (0.8-1.8); Alk Phos 75 U/L (50-136); Anion Gap 11 mmol/L (3-11); Aspartate Aminotrans (AST/SGOT 21 U/L (12-37); Bilirubin, Total 2.8 mg/dL (0.1-1.0); Blood Urea Nitrogen 19 mg/dL (8-24); Bun/Creatinine Ratio 13.6 (12.0-20.0); CO2, Blood 25 mmol/L (21-32); Chloride, Blood 102 mmol/L (98-108); Ethanol (Alcohol), Blood, Med <3 mg/dL; Globulin, Blood 3.4 g/dL (2.2-4.0); Glomerular Filtration Rate 55 (60-); Glucose, Blood 104 mg/dL (70-99); Potassium, Blood 4.1 mmol/L (3.5-5.5); Sodium, Blood 134 mmol/L (136-145)
[2024-05-03 18:41] LABS: Source, Urine Voided
[2024-05-03 18:47] LABS: Appearance, Urine Hazy (Clear); Blood, Urine 1+ (Neg); Color, Urine Yellow (P-Yellow); Glucose Qualitative, Urine Neg (Neg); Ketones, Urine Neg (Neg); Leukocyte Esterase, Urine 1+ (Neg); Nitrite, Urine Neg (Neg); Protein, Urine 2+ (Neg); Specific Gravity, Urine 1.015 (1.003-1.022); Urobilinogen, Urine 1+ (Normal)
[2024-05-03 18:58] LABS: U Amphetamine Screen DETECTED; U Barbituate Screen Not Detected; U Benzodiazapine Screen Not Detected; U Buprenorphine Screen Not Detected; U Cannabinoids Screen Not Detected; U Cocaine Screen Not Detected; U Methadone Screen Not Detected; U Methamphetamine Screen DETECTED; U Opiates Screen DETECTED; U Oxycodone Screen Not Detected; U Phencyclidine Screen Not Detected
[2024-05-03 19:01] LABS: Bilirubin, Urine 1+ (Neg)
[2024-05-03 19:03] LABS: Granular Casts 0-2 /lpf (0)
[2024-05-03 19:04] LABS: Amorphous Light (0-Heavy); Bacteria Many /hpf; Calcium Oxalate Crystals Rare /hpf; Mucus Mod (0-Heavy); Red Blood Cells, Urine 0-2 /hpf (0-2); Squamous Epithelial Cells Rare /hpf (Few)
[2024-05-03] MEDS ORDERED: IBUP800 PO (19:53)
[2024-05-03] MEDS ORDERED: Ketorolac Tromethamine 30mg Vial IV ONE (19:55)
== END 2024-05-03 20:14 | disposition home or self-care (01) ==
LOC: ER 16:33
PROVIDERS: Emergency Medicine
DX: S20.211A Contusion of right front wall of thorax, initial encounter (principal); I10 Essential (primary) hypertension; K21.9 Gastro-esophageal reflux disease without esophagitis; F17.210 Nicotine dependence, cigarettes, uncomplicated; V19.9XXA Pedal cyclist (driver) (passenger) injured in unspecified traffic accident, initial encounter; Z79.899 Other long term (current) drug therapy
CPT/HCPCS: 51701; 70450; 71045; 71260; 72125; 74177; 80053; 80320; 81001; 83690; 85025; 85610; 87086; 96374-59; 96375; 99285-25; J1885; J2270; J2405; Q9967

== ENCOUNTER 2024-07-08 11:39 | Emergency (ER) | payer OTHER ==
[~2024-07-08] VITALS: Ht 170.2 cm; Wt 90.7 kg
[~2024-07-08 11:39] MED LIST changes: +IBUP800 PO
[2024-07-08 12:01] VITALS: BP 139/112
[2024-07-08] MEDS ORDERED: HYDROcodone 5-APAP 325 TAB PO ONE (13:20)
== END 2024-07-08 14:03 | disposition home or self-care (01) ==
LOC: ER 11:39
DX: S42.031A Displaced fracture of lateral end of right clavicle, initial encounter for closed fracture (principal); K21.9 Gastro-esophageal reflux disease without esophagitis; N40.0 Benign prostatic hyperplasia without lower urinary tract symptoms; I10 Essential (primary) hypertension; F17.210 Nicotine dependence, cigarettes, uncomplicated; V28.41XA Electric (assisted) bicycle driver injured in noncollision transport accident in traffic accident, initial encounter; Z79.899 Other long term (current) drug therapy
CPT/HCPCS: 73030; 99283-25; A9270